=== PATIENT | male | born 1955 | race Caucasian/White ===

== ENCOUNTER 2018-09-17 23:28 | Inpatient (IN) ==
[~2018-09-17 23:28] MED LIST: HYDROcodone-APAP 5 MG -325 MG TABLET PO PRN; IBUPROFEN 800 MG TABLET PO PRN; POLYETHYLENE GLYCOL 3350 17 GM POWDER PO PRN; Senna Tab 8.6 MG TAB PO PRN
[2018-09-18] MEDS ORDERED: GUAIFENESIN 600 MG TABLET PO PRN (00:46)
[2018-09-18] MEDS ORDERED: IPRATROPIUM/ALBUTEROL SULFATE 3 ML NEB NEB SCH (01:00)
[2018-09-18] MEDS ORDERED: LEVOTHYROXINE 75 MCG TABLET PO SCH (05:30)
[2018-09-18] MEDS: Heparin Drip 25,000 UNIT/500 ML BAG IV SCH ×2 (07:25→16:44)
[2018-09-18] MEDS ORDERED: Cefepime Inj 2 GM in Sodium Chloride 0.9% 100 ML IV SCH (08:00)
[2018-09-18] MEDS ORDERED: Esomeprazole DR 20mg Capsule PO SCH (09:00)
[2018-09-18] MEDS ORDERED: ASPIRIN 81 MG (BABY) CHEWABLE TABLET PO SCH (09:00)
[2018-09-18] MEDS ORDERED: ENOXAPARIN SODIUM 40 MG/0.4 ML SYRINGE SUBCUT SCH (09:00)
[2018-09-18] MEDS ORDERED: METOPROLOL SUCCINATE 50 MG SR 24H TABLET PO SCH (09:00)
[2018-09-18] MEDS ORDERED: Metoprolol TARTRATE Tab 25 MG TAB PO SCH (09:00)
[2018-09-18] MEDS ORDERED: ALLOPURINOL 300 MG TABLET PO SCH (09:00)
[2018-09-18] MEDS ORDERED: Potassium Chloride Tab 10 MEQ TAB PO SCH (09:00)
[2018-09-18] MEDS ORDERED: Beta Carot W/Vit E,C,Min Tab 1 TAB TAB PO SCH (09:00)
[2018-09-18] MEDS ORDERED: Heparin Drip 25,000 UNIT/500 ML BAG IV SCH (12:30)
[2018-09-18] MEDS ORDERED: FUROSEMIDE 10 MG/1 ML - 4 ML IVP SCH (13:00)
[2018-09-18 14:39] VITALS: TEMP 98.6
[2018-09-18 14:40] VITALS: RESP 20
--- NOTE | 2018-09-18 14:53 | HOSP.PROG ---
PESI Score - PESI Score and Risk Age: 63 Sex: Male History of Cancer: No History of Heart Failure: No History of Chronic Lung Disease: No Heart Rate >/= 110: Yes Systolic BP <100 mmHg: No Respiratory Rate >/= 30: No Temperature < 96.8: No Altered Mental Status (Disorientation, lethargy, stupor, or: No O2 Saturation <90%: Yes (the patient has been admitted to ICU, on heparin drip, exploring options for further evaluation) Pulmonary Embolism Severity Index (PESI) Score: 112 PESI Risk: High Risk
--- NOTE | 2018-09-18 14:58 | DCSUMMARY ---
Hospitalization Summary Admit Date: 09/17/2018 Discharge Date: 09/18/18 Primary Diagnosis:: pulmonary emboli, bilateral, question submassive PE Hospital Course: This very pleasant 63-year-old male that was recently admitted to our swing bed for continued physical therapy and rehabilitation after a fairly extensive course with influenza A, respiratory failure, and acute respiratory distress syndrome. He was recovering well and was down to about 1-2 L per nasal cannula when he became very short of breath, and was readmitted as a chest x-ray apparently had shown some possible evidence of pulmonary fibrosis. A CT scan was done with contrast to look for worsening pulmonary fibrosis, but he was found to have bilateral pulmonary emboli, right side greater than left. He was also found to have possible infiltrate was placed on cefepime and vancomycin. The patient has not had any fevers, but he has been tachycardic and he said systolic blood pressures from 100s to 120s. He is requiring about 3-4 L per nasal cannula and is been somewhat short of breath. His brain natruretic peptide was elevated to 424. I have ordered an EKG and it is pending at this time. A troponin is also pending. Blood is complex here, is that he has some signs physically of worsened shortness of breath, and worsened dyspnea with exertion in the setting of these pulmonary emboli, showing some physical evidence of right sided heart strain, and some soft call laboratory data such as a slightly elevated brain natruretic peptide. However, we do not have the ability in our critical access facility to continue an evaluation for submassive pulmonary emboli and whether or not the patient would be a good candidate for catheter directed thrombolytic therapy. Given that, I spoke to the patient, his , and his daughter, Harmony, at [phone], and she is an orthopedic physician in [place], [place]. Overall, they felt that the safest thing to do would be to have this evaluation done at a facility with more experience with catheter directed thrombolytic therapy and they did not want to pursue this in [place], [place]. Their preference was [facility] in [place]. I should note that this happened on prophylactic Lovenox. He had lasix last night with some edema in his lower extremity. He is requiring more oxygen. He has a history of a prosthetic mitral valve repair and also had liver enzymes elevated. I spoke to Dr. De, and explained the patient's situation, and the fact that we cannot even do an evaluation to fully ascertain whether the patient has true right heart strain. Although the CT scan did not show evidence of right heart strain, this is certainly not indicative or as specific as an echocardiogram would be. He has very high risk pulmonary embolism severity index score, and given the clot burden on CT scan, I think the patient warrants further evaluation. I am very thankful that Dr. De was willing to accept this patient's care for an evaluation. I was very careful to explain to the patient and his that this is an evaluation first and foremost, and that does not guarantee that any procedures will be done. The patient and his family understand this well. The patient overall does not complain of any chest pain. He does state that he short of breath. He was only able to ambulate minimally from his bathroom to the bedside. No nausea or vomiting. He felt significantly better yesterday. He has been on a heparin drip here. Assessment and Plan: 1. As per discharge assessments noted 2. Disposition: Patient is discharged to [facility] 3. Condition on discharge, stable, but condition could deteriorate as he has bilateral pulmonary emboli with right side greater than left. I think he is stabilized enough for transport. 4. Diet: We'll keep nothing by mouth for flight 5. Activities: As per [facility] 6. Follow-Up: 1. Primary physician 1 week post discharge from major facility 7. Medications at the Time of Discharge: Active Medications Generic Name Dose Route Start Last Admin Trade Name Freq PRN Reason Stop Dose Admin Hydrocodone Bitart/Acetaminophen 1 tab 09/17/18 23:18 [place] 5/325 Tab PO Q6H PRN Pain Albuterol/Ipratropium 3 ml 09/18/18 01:00 09/18/18 13:29 Duoneb Neb Soln NEB 3 ml RTQ6H MARA Administration Allopurinol 150 mg 09/18/18 09:00 09/18/18 14:23 Zyloprim PO Not Given DAILY MARA Aspirin 81 mg 09/18/18 09:00 09/18/18 14:19 Aspirin Chewable Tab PO Not Given DAILY@0900 MARA Enoxaparin Sodium 40 mg 09/18/18 09:00 09/18/18 14:20 Lovenox Inj SUBCUT Not Given DAILY [facility] Esomeprazole Magnesium 40 mg 09/18/18 09:00 09/18/18 14:20 Nexium PO Not Given DAILY [facility] Furosemide 40 mg 09/18/18 13:00 09/18/18 14:23 Lasix Inj IVP Not Given BID@0700,1300 [facility] Guaifenesin 600 mg 09/18/18 00:46 Mucinex Er Tab PO BID PRN Congestion Heparin Sodium/Dextrose 25,000 unit in 500 mls @ 29.88 mls/hr 09/17/18 23:28 09/18/18 07:25 Heparin (Premix) IV 20 unit/kg/hr .Per Protocol MARA 33.2 mls/hr Administration Protocol 18 UNIT/KG/HR Cefepime HCl 2 gm/ Sodium 100 mls @ 200 mls/hr 09/18/18 08:00 09/18/18 14:18 Chloride IV Not Given Q8H [facility] Vancomycin HCl 1.25 gm/ Sodium 250 mls @ 250 mls/hr 09/18/18 20:00 Chloride IV Q12H [facility] Ibuprofen 800 mg 09/17/18 23:18 Motrin PO Q8H PRN Pain Levothyroxine Sodium 75 mcg 09/18/18 05:30 09/18/18 14:18 Synthroid PO Not Given DAILY@0530 [facility] Melatonin 5 mg 09/18/18 21:00 Melatonin PO BEDTIME [facility] Metoprolol Succinate 50 mg 09/18/18 09:00 09/18/18 14:23 Toprol Xl PO Not Given BID [facility] Metoprolol Tartrate 12.5 mg 09/18/18 09:00 09/18/18 14:19 Lopressor Tab PO Not Given BID [facility] Multivitamins/Minerals 1 tab 09/18/18 09:00 09/18/18 14:23 Ocuvite Tab PO Not Given DAILY [facility] Olmesartan 40 mg 09/18/18 21:00 Benicar PO BEDTIME [facility] Polyethylene Glycol 17 gm 09/17/18 23:18 Miralax Packet PO DAILY PRN Constipation Potassium Chloride 10 meq 09/18/18 09:00 09/18/18 14:19 Klor-Con PO Not Given BID [facility] Senna 8.6 mg 09/17/18 23:18 Senokot PO DAILY PRN Constipation 8. Time, care, counseling and coordination of care for this discharge is greater than 30 minutes. Exam - Vitals Vital Signs: Vital Signs Temperature 98.6 F Temperature Source Oral Pulse Rate [Telemetry] 120 Pulse Rate 115 Respiratory Rate 20 Blood Pressure [Left Arm] 121/84 Pulse Ox 90 Oxygen Flow Rate 2 Oxygen Delivery Method Nasal Cannula Height 5 ft 8 in Weight 182 lb 6.4 oz - General General Appearance: No Acute Distress, Cooperative Additional General Exam Details: dyspnea post ambulation from bathroom to bed. - Head Head Exam: Normal Inspection, Normocephalic, Atraumatic - Eye Eye Exam: POSITIVE: No Scleral Icterus - ENT ENT Exam: POSITIVE: Mucous Membranes Moist - Neck Neck Exam: JVP is not Raised - Respiratory Respiratory Exam: POSITIVE: Breathing Non Labored, Crackles, Coarse Breath Sounds - Cardiovascular Cardiovascular Exam: POSITIVE: No Clicks, No Gallops, No Rubs, Tachycardia, No JVD - GI/Abdominal GI/Abdominal Exam: POSITIVE: Normal Bowel Sounds, Non Tender, Non Distended, Soft - Extremities Extremities Exam: POSITIVE: No Clubbing Present, No Edema Present, No Cyanosis Present - Neurological Neurological Exam: POSITIVE: Alert, Oriented x 3, No Facial Droop, Speech Intact / Clear, Moves All Extremities Equally Data Peritnent Studies: 03/16/12 03/12/13 09/05/17 06:15 06:20 07:06 WBC Hgb RDW 14.2 Plt Count Neut % (Auto) PT INR APTT D-Dimer Sodium Potassium Chloride Carbon Dioxide Anion Gap BUN Creatinine Mean Blood Glucose 97.15 Estimated GFR BUN/Creatinine Ratio Glucose Calculated Osmolality Calcium Magnesium Total Bilirubin AST ALT Alkaline Phosphatase Total Creatine Kinase 111 Lactate Dehydrogenase Troponin I NT-Pro-B Natriuret Pep Total Protein Albumin Globulin Albumin/Globulin Ratio 03/08/18 08/16/18 09/17/18 07:24 22:04 20:20 WBC Hgb RDW Plt Count Neut % (Auto) PT INR APTT D-Dimer 2.18 H Sodium Potassium Chloride Carbon Dioxide Anion Gap BUN Creatinine Mean Blood Glucose Estimated GFR BUN/Creatinine Ratio Glucose Calculated Osmolality Calcium Magnesium Total Bilirubin AST ALT Alkaline Phosphatase Total Creatine Kinase Lactate Dehydrogenase 434 Troponin I NT-Pro-B Natriuret Pep 454 H Total Protein Albumin Globulin Albumin/Globulin Ratio 09/17/18 09/18/18 09/18/18 23:11 08:20 08:25 WBC Hgb RDW Plt Count Neut % (Auto) PT 9.9 INR 0.97 APTT D-Dimer Sodium Potassium Chloride Carbon Dioxide Anion Gap BUN Creatinine Mean Blood Glucose Estimated GFR BUN/Creatinine Ratio Glucose Calculated Osmolality Calcium Magnesium 1.9 Total Bilirubin AST ALT Alkaline Phosphatase Total Creatine Kinase Lactate Dehydrogenase Troponin I < 0.012 NT-Pro-B Natriuret Pep Total Protein Albumin Globulin Albumin/Globulin Ratio 09/18/18 09/18/18 09/18/18 08:25 08:25 12:07 WBC 5.91 Hgb 12.0 L RDW Plt Count 215 Neut % (Auto) 89.0 H PT INR APTT 52.3 H D-Dimer Sodium 139 Potassium 3.6 L Chloride 103 Carbon Dioxide 25 Anion Gap 11 BUN 20 Creatinine 0.8 Mean Blood Glucose Estimated GFR > 60 BUN/Creatinine Ratio 25.00 H Glucose 225 H Calculated Osmolality 297.0 H Calcium 9.4 Magnesium Total Bilirubin 0.5 AST 74 H ALT 84 H Alkaline Phosphatase 212 H Total Creatine Kinase Lactate Dehydrogenase Troponin I NT-Pro-B Natriuret Pep Total Protein 7.4 Albumin 4.0 Globulin 3.4 Albumin/Globulin Ratio 1.10 L Patient Problems - Patient Problem List (1) Pulmonary embolism Current Visit: Yes Status: Acute Code(s): I26.99 - Other pulmonary embolism without acute cor pulmonale Qualifiers: Pulmonary embolism type: other Chronicity: acute Acute cor pulmonale presence: with acute cor pulmonale Qualified Code(s): I26.09 - Other pulmonary embolism with acute cor pulmonale Category: Medical (2) HTN (hypertension) Current Visit: Yes Status: Acute Code(s): I10 - Essential (primary) hypertension Qualifiers: Hypertension type: essential hypertension Qualified Code(s): I10 - Essential (primary) hypertension Category: Medical (3) Gouty arthropathy Current Visit: Yes Status: Acute Code(s): M10.9 - Gout, unspecified Category: Medical (4) Hypercholesterolemia Current Visit: Yes Status: Acute Code(s): E78.00 - Pure hypercholesterolemia, unspecified Category: Medical (5) Hypothyroidism Current Visit: Yes Status: Acute Code(s): E03.9 - Hypothyroidism, unspecified Qualifiers: Hypothyroidism type: unspecified Qualified Code(s): E03.9 - Hypothyroidism, unspecified Category: Medical (6) Hx of mitral valve repair Current Visit: Yes Status: Acute Code(s): Z98.890 - Other specified postprocedural states Category: Surgical
[2018-09-18] MEDS ORDERED: LORazepam 2 MG/1 ML VIAL IVP ONE (16:00)
[2018-09-18 16:51] VITALS: BP 110/75; O2SAT 94
--- NOTE | 2018-09-18 19:55 | EKG ---
[address] [address] Measurements Intervals [place] Rate: 117 P: 37 SC: 162 QRS: -9 QRSD: 105 T: 52 QT: 430 QTc: 500 Interpretive Statements SINUS TACHYCARDIA LEFT VENTRICULAR HYPERTROPHY AND ST-T CHANGE No previous ECG available for comparison Electronically Signed On 09-19-18 08:13:59 MST by Errol Carter [email or web address]
[2018-09-18] MEDS ORDERED: Olmesartan Tab 40 MG TAB PO SCH (21:00)
[2018-09-18] MEDS ORDERED: MELATONIN 5 MG TABLET PO SCH (21:00)
--- NOTE | 2018-09-19 11:32 | OTI REPORT ---
Thank you for the referral of Ramesh Barnes. He was seen on 09/18/18 for an occupational therapy inpatient evaluation secondary to weakness. SUBJECTIVE: The patient is a 63-year-old male who is being seen secondary to having quite a long experience in the ICU in [place] secondary to pneumonia. The patient spend 14 days in the ICU. He was in a semi-coma and his reported that he was on a drop to stop the muscle. The patient is a clinical documentation spec and he states recently he is having a lot of trouble dressing himself and is having difficulty with gross and fine motor control of his upper extremities. The patient was transferred to the ICU. He reports that he was having more coughing. His oxygen levels are dropping more when he is completing exercises and they also found blood clots in his bilateral lungs. Nursing states that he can do a little bit. We are doing a new evaluation secondary to change in status. His main goal is to get better so he can return home. PAST MEDICAL HISTORY: Past medical history can be found in the patient's medical record. OBJECTIVE FINDINGS: Bed mobility: The patient was able to come from supine to sit and from sit to supine independently. Range of motion: While sitting edge of bed the patient had range of motion within functional limits on the left upper extremity. On the right upper extremity he was only able to move to about 130 degrees. Strength: Upper extremity strength is 3+/5. Endurance: The patient is fatiguing a lot easier. When completing range of motion of the shoulders, his oxygen saturation dropped to 88%. Activities of daily living: The patient can complete lower extremity dressing and upper extremity dressing with mod assist. He does become very short of breath very easily. ASSESSMENT: Because of the change in ICU status and blood clots in the lungs, we are instructed to just perform easy levels of activity with the patient. Problem List: Decreased ability to complete ADLs Decreased upper extremity strength Decreased fine motor skills/coordination Decreased ability to complete functional transfers Decreased balance Short-Term Goals: To be met by discharge from inpatient: Patient will be able to complete upper extremity range of motion in all planes and ranges without his oxygen saturation dropping below 90%. Patient will demonstrate energy conservation and pursed lipped breathing during tasks to keep oxygen levels above 90%. Patient will increase upper extremity strength to 4/5 in all planes and ranges. Patient will be able to dress self independently without fatigue. Long-Term Goals: To be met following discharge from inpatient: Patient will be discharged from ICU and into more of a rehab stay again for higher level ADLs and strengthening. TREATMENT PLAN: Patient will be seen B.I.D during the week and one time per day over the weekend as an inpatient to address the above goals and objectives. INITIAL TREATMENT: Treatment today consisted of the initial evaluation followed by some range of motion and very light strengthening with a one pound weight for his elbows, forearms, and wrists. We will work on more ADLs and higher level tasks once he is cleared by the doctor. A few times today the patient's oxygen saturation would drop to 88% and we needed to stop and just work on his pursed lipped breathing. When he laid back down his oxygen levels dropped to 86%. We waited for his oxygen levels to increase before leaving the room. This was reported to his ICU nurse. [facility]
== END 2018-09-18 16:45 | disposition short-term general hospital (02) | DRG 176 ==
LOC: ICU 23:28 → EDSTATUS 09-18 11:54
PROVIDERS: ADMIT Internal Medicine; ATTEND Internal Medicine